=== PATIENT | male | born 1965 | race Caucasian/White ===

== ENCOUNTER 2018-10-21 11:26 | Emergency (ER) | payer OTHER ==
[2018-10-21 13:40] LABS: ADD MAN DIFF? NO
[2018-10-21 13:44] LABS: WHITE BLOOD COUNT 9.2 10^3/ul (4.8-10.8)
[2018-10-21 13:44] LABS: BASOPHILS % 0.3 % (0.0-2.0); EOSINOPHILS # 0.3 10^3/ul (0.0-0.5); EOSINOPHILS % 3.4 % (0.0-7.0); HEMATOCRIT 47.7 % (42.0-52.0); HEMOGLOBIN 15.5 g/dl (14.0-18.0); LYMPHOCYTES # 2.4 10^3/ul (0.8-2.9); LYMPHOCYTES % 25.5 % (15.0-51.0); MEAN CORPUSCULAR HEMOGLOBIN 29.6 pg (29.0-33.0); MEAN CORPUSCULAR HGB CONC 32.5 g/dl (32.0-37.0); MEAN CORPUSCULAR VOLUME 91.2 fl (82.0-101.0); MEAN PLATELET VOLUME 8.7 fl (7.4-10.4); MONOCYTE # 0.6 10^3/ul (0.3-0.9); MONOCYTES % 6.2 % (0.0-11.0); NEUTROPHILS % 64.4 % (39.0-77.0); PLATELET COUNT 292 10^3/UL (140-415); RED BLOOD COUNT 5.23 10^6/ul (4.70-6.10)
[2018-10-21 14:07] LABS: ALANINE AMINOTRANSFERASE 18 IU/L (13-69); ALBUMIN 4.1 g/dl (3.3-4.9); ALBUMIN/GLOBULIN RATIO 1.07; ALKALINE PHOSPHATASE 91 IU/L (42-121); ANION GAP 10 (5-13); ASPARTATE AMINO TRANSFERASE 19 IU/L (15-46); BILIRUBIN,INDIRECT 0.8 mg/dl (0-1.1); BILIRUBIN,TOTAL 0.8 mg/dl (0.2-1.3); BLOOD UREA NITROGEN 10 mg/dl (7-20); CALCIUM 9.3 mg/dl (8.4-10.2); CARBON DIOXIDE 30 mmol/L (21-31); CHLORIDE 100 mmol/L (97-110); CREATININE 0.98 mg/dl (0.61-1.24); Estimated GFR > 60 mL/min (>60); GLUCOSE 120 mg/dl (70-220); SODIUM 140 mmol/L (135-144); TOTAL PROTEIN 7.9 g/dl (6.1-8.1)
[2018-10-21] MEDS: SOD CHLORIDE 0.9% 100 ML (14:43)
[2018-10-21] MEDS: IOHEXOL 300MG/ML 150 ML BTL (14:43)
[2018-10-21] MEDS: IBUPROFEN 600 MG TAB PO (15:54)
[2018-10-21 16:06] LABS: FREE THYROXINE INDEX (Calc) 3.19 ug/ml (0.65-3.89); T3 UPTAKE 33.9 % (23.5-40.5); T4 (THYROXINE) 9.4 ug/dl (5.5-11.0)
== END 2018-10-21 19:17 | disposition home or self-care (01) ==
LOC: E/R 11:26 → FTE 19:17
DX: E04.1 Nontoxic single thyroid nodule (principal)
CPT/HCPCS: 70491; 76536; 80053; 84436; 84479; 85025; 99284-25